=== PATIENT | male | born 1975 | race Hispanic/Latino ===

== ENCOUNTER 2017-11-29 08:30 | Emergency (ER) | payer SELFPAY ==
[2017-11-29] MEDS ORDERED: LIDOCAINE HCL 2% VISCOUS 15 ML UDCUP ONE (08:58)
[2017-11-29] MEDS ORDERED: DIATR MEGLU/DIATRIZOATE SODIUM 30 ML BOTTLE PO ONE (08:58)
[2017-11-29] MEDS ORDERED: ACETAMINOPHEN-CODEINE ELIXIR 5 ML UDCUP ONE (09:27)
== END 2017-11-29 14:18 | disposition home or self-care (01) ==
LOC: EDH 08:30
DX: R09.89 Other specified symptoms and signs involving the circulatory and respiratory systems (principal); R07.0 Pain in throat; Z72.0 Tobacco use; Z91.010 Allergy to peanuts
CPT/HCPCS: 70360; 70490; 99284; Q9963

== ENCOUNTER 2018-02-01 09:58 | Emergency (ER) | payer OTHER ==
[2018-02-01] MEDS ORDERED: HYDROXYZINE HCL 25 MG TABLET ONE (10:09)
== END 2018-02-01 11:20 | disposition home or self-care (01) ==
LOC: EDH 09:58
DX: F41.0 Panic disorder [episodic paroxysmal anxiety] (principal); K74.60 Unspecified cirrhosis of liver; Z91.010 Allergy to peanuts

== ENCOUNTER 2018-09-26 11:45 | Emergency (ER) | payer OTHER | END 2018-09-26 13:50 | disposition home or self-care (01) | LOC: EDH 11:45 | DX: M25.571 Pain in right ankle and joints of right foot (principal); Z91.010 Allergy to peanuts; Z72.0 Tobacco use | CPT/HCPCS: 99281 ==

== ENCOUNTER 2019-02-01 22:07 | Emergency (ER) | payer OTHER ==
[2019-02-02] MEDS ORDERED: LIDOCAINE HCL 1% 20 ML VIAL ONE (00:06)
[2019-02-02] MEDS ORDERED: TETANUS/DIPHTHERIA TOXOID [ADULT] 0.5 ML VIAL IM ONE (00:11)
== END 2019-02-02 00:35 | disposition home or self-care (01) ==
LOC: EDH 22:07
DX: S00.83XA Contusion of other part of head, initial encounter (principal); S13.8XXA Sprain of joints and ligaments of other parts of neck, initial encounter; X58.XXXA Exposure to other specified factors, initial encounter; Y93.39 Activity, other involving climbing, rappelling and jumping off; Y92.89 Other specified places as the place of occurrence of the external cause; Y99.8 Other external cause status
CPT/HCPCS: 70450; 71045; 72125; 90471; 90714

== ENCOUNTER 2021-02-01 14:22 | Emergency (ER) | payer SELFPAY ==
[2021-02-01] MEDS ORDERED: ONDANSETRON HCL 4 MG/2 ML VIAL ONE (14:57)
[2021-02-01] MEDS ORDERED: SODIUM CHLORIDE 0.9% 1000ML 1,000 ML IV ONE (14:58)
[2021-02-01 15:22] LABS: BASOPHILS % (AUTO) 0.2 % (0.0-5.0); HEMATOCRIT 48.9 % (42-54); LYMPHOCYTES % (AUTO) 36.2 % (21.0-51.0); MEAN CORPUSCULAR HEMOGLOBIN 32.6 pg (27.0-33.0); MEAN CORPUSCULAR HGB CONC 34.8 g/dL (32.0-36.0); MEAN CORPUSCULAR VOLUME 93.9 fL (79-99); NEUTROPHILS % (AUTO) 51.4 % (40.0-77.0); PLATELET COUNT (AUTO) 173 K/uL (130-400); RED BLOOD CELL COUNT(AUTO) 5.21 MIL/uL (4.50-6.20)
[2021-02-01 15:35] LABS: CREATININE 0.9 mg/dL (0.5-1.5); POTASSIUM 3.6 mmol/L (3.5-5.1)
[2021-02-01 15:40] LABS: ALBUMIN 3.5 g/dL (3.5-5.0); BILIRUBIN,TOTAL 0.5 mg/dL (0.2-1.0); TOTAL PROTEIN, SERUM 8.3 g/dL (6.0-8.3)
[2021-02-01] MEDS ORDERED: KETOROLAC TROMETHAMINE 15MG/ML ONE (17:03)
== END 2021-02-01 18:00 | disposition home or self-care (01) ==
LOC: EDH 14:22
DX: U07.1 COVID-19 (principal); F10.10 Alcohol abuse, uncomplicated; Z91.010 Allergy to peanuts
CPT/HCPCS: 36415; 80053; 84484; 85025; 87426; 87804 ×2; 93005; 96361; 96374; 96375; 99284; J1885; J2405; J7030

== ENCOUNTER 2021-02-04 15:28 | Inpatient (IN) | payer OTHER, SELFPAY ==
[~2021-02-04] VITALS: Ht 167.6 cm; Wt 91.7 kg
[2021-02-04 16:25] LABS: BASOPHILS % (AUTO) 0.2 % (0.0-5.0); HEMATOCRIT 46.2 % (42-54); LYMPHOCYTES % (AUTO) 25.6 % (21.0-51.0); MEAN CORPUSCULAR HGB CONC 34.4 g/dL (32.0-36.0); NEUTROPHILS % (AUTO) 59.6 % (40.0-77.0); PLATELET COUNT (AUTO) 154 K/uL (130-400); RED BLOOD CELL COUNT(AUTO) 4.97 MIL/uL (4.50-6.20); RED CELL DISTRIBUTION WIDTH 12.6 % (11.0-15.5); WHITE BLOOD COUNT (AUTO) 4.6 K/uL (4.8-10.8)
[2021-02-04 16:39] LABS: INR 0.96 (0.85-1.15); PROTHROMBIN TIME 10.5 SEC (9.6-11.6)
[2021-02-04 16:41] LABS: PARTIAL THROMBOPLASTIN TIME 26.2 SEC (26.3-35.5)
[2021-02-04] MEDS ORDERED: CEFTRIAXONE 1G VIAL ONE (16:44)
[2021-02-04] MEDS ORDERED: ALBUTEROL INHALER 90MCG/INH IH ONE (16:44)
[2021-02-04] MEDS ORDERED: AZITHROMYCIN 250 MG TABLET PO ONE (16:44)
[2021-02-04] MEDS ORDERED: ACETAMINOPHEN WITH CODEINE 1 TAB TAB ONE ×2 (16:45→23:41)
[2021-02-04 16:47] LABS: ABG BASE EXCESS 1.8 mmol/L (-2.0-3.0); ABG HCO3 24.4 mmol/L (21.0-28.0); ABG OXYGEN SATURATION 94.8 % (95.0-99.0); ABG PCO2 33 mmHg (35-48)
[2021-02-04 16:49] LABS: APPEARANCE,URINE Clear (CLEAR); BILIRUBIN,URINE Small (NEGATIVE); COLOR,URINE Dark Yellow (YELLOW); GLUCOSE, URINE (UA) Negative (NEGATIVE); KETONES,URINE 15 mg/dL (NEGATIVE); LEUKOCYTE ESTERASE ,URINE Trace (NEGATIVE); NITRATE,URINE Negative (NEGATIVE); OCCULT BLOOD,URINE Negative (NEGATIVE); PROTEIN,URINE POS 2+ mg/dL (NEGATIVE)
[2021-02-04 16:58] LABS: BACTERIA,URINE Few /HPF (None Seen); MUCUS,URINE Moderate LPF (None Seen); RBC,URINE 0-1 /HPF (0-1); SQUAMOUS EPITHELIAL CELL,UR Few /HPF (0-2)
[2021-02-04] MEDS ORDERED: MAG/ALUM/SIMETH 30 ML UDCUP PO PRN (18:00)
[2021-02-04] MEDS ORDERED: DIPHENHYDRAMINE HCL 25 MG CAPSULE PO PRN (18:00)
[2021-02-04] MEDS ORDERED: DOXYCYCLINE 100MG+NS 250ML IV SCH (18:00)
[2021-02-04] MEDS ORDERED: ONDANSETRON 4MG INJ IV PRN (18:00)
[2021-02-04] MEDS ORDERED: LACTULOSE 20 GM/30 ML UDCUP PO PRN (18:00)
[2021-02-04] MEDS ORDERED: ACETAMINOPHEN 325 MG TAB PO PRN (18:00)
[2021-02-04] MEDS: DEXAMETHASONE SOD PHOSPHATE 4 MG/ML 1ML VIAL IVP SCH (18:00)
[2021-02-04] MEDS ORDERED: ALBUTEROL 0.083% 2.5 MG/3 ML INH IH PRN (18:00)
[2021-02-04] MEDS ORDERED: ACETAMINOPHEN WITH CODEINE 1 TAB TAB PO PRN (18:00)
[2021-02-04] MEDS: DOXYCYCLINE 100MG+NS 250ML 250 ML IV SCH (20:00)
[2021-02-04 20:16] LABS: POTASSIUM 3.4 mmol/L (3.5-5.1)
[2021-02-04 20:25] LABS: ALBUMIN 2.9 g/dL (3.5-5.0); BILIRUBIN,TOTAL 0.4 mg/dL (0.2-1.0); CRP QUANTITATIVE 50.8 mg/L (0.00-9.0); TOTAL PROTEIN, SERUM 7.5 g/dL (6.0-8.3)
[2021-02-04] MEDS: FAMOTIDINE 20MG TAB PO SCH (21:00)
[2021-02-04] MEDS ORDERED: FAMOTIDINE 20MG TAB ONE (23:40)
[2021-02-04] MEDS ORDERED: ACETAMINOPHEN 325 MG TAB ONE (23:40)
[2021-02-05] VITALS (7 sets, daily range): BP systolic 121–138; BP diastolic 73–88
[2021-02-05 04:56] LABS: BASOPHILS % (AUTO) 0.4 % (0.0-5.0); EOSINOPHILS % (AUTO) 0.2 % (0.0-8.0); HEMATOCRIT 43.8 % (42-54); LYMPHOCYTES % (AUTO) 25.3 % (21.0-51.0); MEAN CORPUSCULAR HEMOGLOBIN 32.6 pg (27.0-33.0); MEAN CORPUSCULAR HGB CONC 34.9 g/dL (32.0-36.0); MEAN CORPUSCULAR VOLUME 93.4 fL (79-99); MONOCYTES % (AUTO) 15.8 % (3.0-13.0); NEUTROPHILS % (AUTO) 57.9 % (40.0-77.0); PLATELET COUNT (AUTO) 154 K/uL (130-400); RED BLOOD CELL COUNT(AUTO) 4.69 MIL/uL (4.50-6.20); RED CELL DISTRIBUTION WIDTH 12.6 % (11.0-15.5); WHITE BLOOD COUNT (AUTO) 5.1 K/uL (4.8-10.8)
[2021-02-05] MEDS ORDERED: PHARMACY COMMUNICATION**REMDESIVIR MISC SCH (05:15)
[2021-02-05 05:17] LABS: ALBUMIN 2.9 g/dL (3.5-5.0); BILIRUBIN,TOTAL 0.5 mg/dL (0.2-1.0); CREATININE 0.9 mg/dL (0.5-1.5); CRP QUANTITATIVE 58.9 mg/L (0.00-9.0); POTASSIUM 3.8 mmol/L (3.5-5.1); TOTAL PROTEIN, SERUM 6.6 g/dL (6.0-8.3)
[2021-02-05] MEDS ORDERED: CHLORDIAZEPOXIDE HCL 25 MG CAP PO PRN (08:15)
[2021-02-05] MEDS ORDERED: PHARMACY COMMUNICATION MISC PRN (08:15)
[2021-02-05] MEDS ORDERED: LORAZEPAM 2 MG/ML 1 ML VIAL IVP PRN (08:15)
[2021-02-05] MEDS: DOXYCYCLINE 100MG+NS 250ML 250 ML IV SCH ×2 (08:17→20:26)
[2021-02-05] MEDS: CEFTRIAXONE 1G VIAL IVP SCH ×2 (08:18→20:25)
[2021-02-05] MEDS: FAMOTIDINE 20MG TAB PO SCH ×2 (08:18→20:25)
[2021-02-05] MEDS: ENOXAPARIN SODIUM 40 MG/0.4 ML SYRINGE SQ SCH ×2 (08:19→20:25)
[2021-02-05] MEDS: FOLIC ACID 1 MG TABLET PO SCH (08:20)
[2021-02-05] MEDS ORDERED: ENOXAPARIN SODIUM 40 MG/0.4 ML SYRINGE SQ SCH (09:00)
[2021-02-05] MEDS ORDERED: PHARMACY COMMUNICATION MISC SCH (09:15)
[2021-02-05] MEDS ORDERED: REMDESIVIR (EUA) 520 200 MG in 0.9% NACL 250ML 250 ML IV SCH (10:45)
[2021-02-05] MEDS ORDERED: COMPOUND IV REFRIGERATED 1 EACH IVSOLN MISC PRN (10:45)
[2021-02-05 11:20] LABS: AMPHET/METH SCREEN,URINE NEGATIVE (NEGATIVE); BARBITURATE SCREEN, URINE NEGATIVE (NEGATIVE); BENZODIAZEPINES SCREEN,URINE NEGATIVE (NEGATIVE); CANNABINOID SCREEN,URINE POSITIVE (NEGATIVE); COCAINE SCREEN,URINE NEGATIVE (NEGATIVE); OPIATE SCREEN,URINE POSITIVE (NEGATIVE); PHENCYCLIDINE SCREEN,URINE NEGATIVE (NEGATIVE)
[2021-02-05] MEDS: GUAIFENESIN-DM 200/20 MG 10 ML PO PRN ×3 (11:44→20:43)
[2021-02-05] MEDS: DEXAMETHASONE SOD PHOSPHATE 4 MG/ML 1ML VIAL IVP SCH (17:16)
[2021-02-05] MEDS: THIAMINE HCL 100 MG TABLET PO SCH (17:34)
[2021-02-05] MEDS: CHLORDIAZEPOXIDE HCL 25 MG CAP PO SCH (20:25)
[2021-02-06 03:13] VITALS: BP 123/89
[2021-02-06] MEDS: GUAIFENESIN-DM 200/20 MG 10 ML PO PRN ×3 (03:37→20:00)
[2021-02-06 04:47] LABS: HEMATOCRIT 46.4 % (42-54); LYMPHOCYTES % (AUTO) 22.9 % (21.0-51.0); MEAN CORPUSCULAR HEMOGLOBIN 32.6 pg (27.0-33.0); MEAN CORPUSCULAR HGB CONC 35.6 g/dL (32.0-36.0); MEAN CORPUSCULAR VOLUME 91.7 fL (79-99); MONOCYTES % (AUTO) 11.6 % (3.0-13.0); NEUTROPHILS % (AUTO) 65.2 % (40.0-77.0); PLATELET COUNT (AUTO) 222 K/uL (130-400); RED BLOOD CELL COUNT(AUTO) 5.06 MIL/uL (4.50-6.20); RED CELL DISTRIBUTION WIDTH 12.5 % (11.0-15.5); WHITE BLOOD COUNT (AUTO) 3.3 K/uL (4.8-10.8)
[2021-02-06 05:12] LABS: ALBUMIN 2.8 g/dL (3.5-5.0); BILIRUBIN,TOTAL 0.4 mg/dL (0.2-1.0); CREATININE 0.8 mg/dL (0.5-1.5); CRP QUANTITATIVE 90.7 mg/L (0.00-9.0); MAGNESIUM 2.4 mg/dL (1.80-2.40); POTASSIUM 4.1 mmol/L (3.5-5.1); TOTAL PROTEIN, SERUM 7.9 g/dL (6.0-8.3)
[2021-02-06] MEDS: REMDESIVIR LABS MISC SCH (06:00)
[2021-02-06 07:00] VITALS: BP 142/80
[2021-02-06] MEDS: FOLIC ACID 1 MG TABLET PO SCH (08:29)
[2021-02-06] MEDS: DOXYCYCLINE 100MG+NS 250ML 250 ML IV SCH (08:29)
[2021-02-06] MEDS: ENOXAPARIN SODIUM 40 MG/0.4 ML SYRINGE SQ SCH ×2 (08:29→20:00)
[2021-02-06] MEDS: CHLORDIAZEPOXIDE HCL 25 MG CAP PO SCH ×2 (08:30→20:00)
[2021-02-06] MEDS: CEFTRIAXONE 1G VIAL IVP SCH (08:30)
[2021-02-06] MEDS: FAMOTIDINE 20MG TAB PO SCH ×2 (08:30→20:00)
[2021-02-06] MEDS: THIAMINE HCL 100 MG TABLET PO SCH (08:48)
[2021-02-06 11:00] VITALS: BP 126/50
[2021-02-06] MEDS: REMDESIVIR (EUA) 520 100 MG in 0.9% NACL 250ML 250 ML IV SCH (12:24)
[2021-02-06 16:00] VITALS: BP 120/87
[2021-02-06] MEDS: DEXAMETHASONE SOD PHOSPHATE 4 MG/ML 1ML VIAL IVP SCH (17:38)
[2021-02-06 19:21] VITALS: BP 132/73
[2021-02-06 23:23] VITALS: BP 107/59
[2021-02-07 03:55] VITALS: BP 133/56
[2021-02-07 04:53] LABS: HEMATOCRIT 44.7 % (42-54); LYMPHOCYTES % (AUTO) 19.8 % (21.0-51.0); MEAN CORPUSCULAR HEMOGLOBIN 32.2 pg (27.0-33.0); MEAN CORPUSCULAR HGB CONC 35.3 g/dL (32.0-36.0); MEAN CORPUSCULAR VOLUME 91.2 fL (79-99); MONOCYTES % (AUTO) 18.1 % (3.0-13.0); NEUTROPHILS % (AUTO) 61.4 % (40.0-77.0); PLATELET COUNT (AUTO) 290 K/uL (130-400); RED CELL DISTRIBUTION WIDTH 12.4 % (11.0-15.5)
[2021-02-07] MEDS: DEXAMETHASONE SOD PHOSPHATE 4 MG/ML 1ML VIAL IVP SCH (05:40)
[2021-02-07] MEDS: REMDESIVIR LABS MISC SCH (06:00)
[2021-02-07 06:11] LABS: ALBUMIN 2.6 g/dL (3.5-5.0); BILIRUBIN,TOTAL 0.3 mg/dL (0.2-1.0); CREATININE 0.8 mg/dL (0.5-1.5); CRP QUANTITATIVE 35.4 mg/L (0.00-9.0); POTASSIUM 4.2 mmol/L (3.5-5.1); TOTAL PROTEIN, SERUM 7.3 g/dL (6.0-8.3)
[2021-02-07 08:00] VITALS: BP 124/77
[2021-02-07] MEDS: FOLIC ACID 1 MG TABLET PO SCH (09:47)
[2021-02-07] MEDS: ENOXAPARIN SODIUM 40 MG/0.4 ML SYRINGE SQ SCH ×2 (09:47→20:28)
[2021-02-07] MEDS: CHLORDIAZEPOXIDE HCL 25 MG CAP PO SCH ×2 (09:47→20:27)
[2021-02-07] MEDS: THIAMINE HCL 100 MG TABLET PO SCH ×2 (09:47→20:26)
[2021-02-07] MEDS: FAMOTIDINE 20MG TAB PO SCH (09:47)
[2021-02-07] MEDS: DOCUSATE SODIUM 100 MG CAP PO SCH ×2 (11:00→20:26)
[2021-02-07 12:00] VITALS: BP 126/70
[2021-02-07] MEDS: REMDESIVIR (EUA) 520 100 MG in 0.9% NACL 250ML 250 ML IV SCH (14:09)
[2021-02-07 16:00] VITALS: BP 129/82
[2021-02-07 20:00] VITALS: BP 126/86
[2021-02-07] MEDS ORDERED: DOCUSATE SODIUM 100 MG CAP PO SCH (21:00)
[2021-02-07 23:32] VITALS: BP 128/79
[2021-02-08] MEDS: GUAIFENESIN-DM 200/20 MG 10 ML PO PRN ×3 (02:51→20:43)
[2021-02-08 03:13] VITALS: BP 127/85
[2021-02-08] MEDS: REMDESIVIR LABS MISC SCH (06:00)
[2021-02-08] MEDS ORDERED: ONDA-104 PO (07:22)
[2021-02-08] MEDS: CHLORDIAZEPOXIDE HCL 25 MG CAP PO SCH (08:26)
[2021-02-08] MEDS: FOLIC ACID 1 MG TABLET PO SCH (08:26)
[2021-02-08] MEDS: THIAMINE HCL 100 MG TABLET PO SCH ×2 (08:26→20:43)
[2021-02-08] MEDS: DOCUSATE SODIUM 100 MG CAP PO SCH ×3 (08:26→20:43)
[2021-02-08] MEDS: ENOXAPARIN SODIUM 40 MG/0.4 ML SYRINGE SQ SCH ×2 (08:26→20:45)
[2021-02-08 08:30] VITALS: BP 127/58
[2021-02-08] MEDS ORDERED: DEXAMETHASONE SOD PHOSPHATE 4 MG/ML 1ML VIAL IVP SCH (09:00)
[2021-02-08] MEDS: DEXAMETHASONE 4 MG TAB PO SCH (09:36)
[2021-02-08 10:48] LABS: ALBUMIN 2.8 g/dL (3.5-5.0); BILIRUBIN,DIRECT 0.1 mg/dL (0.0-0.3); BILIRUBIN,TOTAL 0.4 mg/dL (0.2-1.0); TOTAL PROTEIN, SERUM 6.5 g/dL (6.0-8.3)
[2021-02-08 11:44] VITALS: BP 113/67
[2021-02-08] MEDS: REMDESIVIR (EUA) 520 100 MG in 0.9% NACL 250ML 250 ML IV SCH (14:20)
[2021-02-08] MEDS ORDERED: CHLORDIAZEPOXIDE HCL 25 MG CAP PO PRN (15:15)
[2021-02-08 16:00] VITALS: BP 133/63
[2021-02-08 20:01] VITALS: BP 118/84
[2021-02-09] VITALS: BP 120/81
[2021-02-09] MEDS: GUAIFENESIN-DM 200/20 MG 10 ML PO PRN (04:03)
[2021-02-09 04:06] VITALS: BP 117/62
[2021-02-09 04:19] LABS: BASOPHILS % (AUTO) 0.2 % (0.0-5.0); EOSINOPHILS % (AUTO) 0.3 % (0.0-8.0); HEMATOCRIT 46.1 % (42-54); MEAN CORPUSCULAR HEMOGLOBIN 31.7 pg (27.0-33.0); MEAN CORPUSCULAR HGB CONC 34.3 g/dL (32.0-36.0); MEAN CORPUSCULAR VOLUME 92.4 fL (79-99); NEUTROPHILS % (AUTO) 71.1 % (40.0-77.0); PLATELET COUNT (AUTO) 397 K/uL (130-400); RED BLOOD CELL COUNT(AUTO) 4.99 MIL/uL (4.50-6.20); RED CELL DISTRIBUTION WIDTH 12.3 % (11.0-15.5); WHITE BLOOD COUNT (AUTO) 9.2 K/uL (4.8-10.8)
[2021-02-09 04:35] LABS: ALBUMIN 2.8 g/dL (3.5-5.0); CREATININE 0.8 mg/dL (0.5-1.5); POTASSIUM 3.6 mmol/L (3.5-5.1)
[2021-02-09 05:08] LABS: BILIRUBIN,TOTAL 0.4 mg/dL (0.2-1.0); CRP QUANTITATIVE 15.7 mg/L (0.00-9.0); TOTAL PROTEIN, SERUM 7.2 g/dL (6.0-8.3)
[2021-02-09] MEDS: REMDESIVIR LABS MISC SCH (05:57)
[2021-02-09] MEDS: DOCUSATE SODIUM 100 MG CAP PO SCH ×2 (05:59→14:55)
[2021-02-09 07:42] VITALS: BP 128/81
[2021-02-09] MEDS: THIAMINE HCL 100 MG TABLET PO SCH (08:29)
[2021-02-09] MEDS: FOLIC ACID 1 MG TABLET PO SCH (08:29)
[2021-02-09] MEDS: DEXAMETHASONE 4 MG TAB PO SCH (08:32)
[2021-02-09] MEDS ORDERED: POLYETHYLENE GLYCOL 3350 17 GM POWD.PACK PO SCH (08:45)
[2021-02-09] MEDS ORDERED: ENOXAPARIN SODIUM 40 MG/0.4 ML SYRINGE SQ SCH (09:00)
[2021-02-09 12:00] VITALS: BP 110/72
[2021-02-09] MEDS ORDERED: DEXA6TAB PO (14:24)
[2021-02-09] MEDS: REMDESIVIR (EUA) 520 100 MG in 0.9% NACL 250ML 250 ML IV SCH (14:34)
== END 2021-02-09 17:31 | disposition home or self-care (01) | DRG 177 ==
LOC: EDH 15:28 → OBSVTOIN 15:29 → EDHIP 15:29 → 2AH 02-05 00:24
PROVIDERS: ADMIT Internal Medicine; ATTEND Internal Medicine
PROC: XW033E5 Introduction of Remdesivir Anti-infective into Peripheral Vein, Percutaneous Approach, New Technology Group 5 (ICD-10-PCS; principal; 2021-02-05)
DX: U07.1 COVID-19 (principal); J96.01 Acute respiratory failure with hypoxia; J12.82 Pneumonia due to coronavirus disease 2019; E87.1 Hypo-osmolality and hyponatremia; D68.59 Other primary thrombophilia; K59.04 Chronic idiopathic constipation; E87.6 Hypokalemia; E66.9 Obesity, unspecified; E86.1 Hypovolemia; F12.10 Cannabis abuse, uncomplicated; F10.10 Alcohol abuse, uncomplicated; Z68.34 Body mass index [BMI] 34.0-34.9, adult
CPT/HCPCS: 36415; 36600; 71045; 71250; 80053; 80076; 80305; 81001; 82550; 82728; 82803; 83605; 83615; 83735; 84145; 84484; 85025; 85378; 85610; 85730; 86140; 86850; 86900; 86901; 87040; 87426; 87804; 87880; 93005; 93970; 94664; G0378; J0696; J1100; J1650; J2405; J3490; J7050; J8540

== ENCOUNTER 2021-02-14 04:44 | Emergency (ER) | payer OTHER, SELFPAY ==
[~2021-02-14 04:44] MED LIST: DEXA6TAB PO; ONDA-104 PO
[2021-02-14] MEDS ORDERED: ORPHENADRINE CITRATE 30 MG/ML ML ONE (05:06)
[2021-02-14] MEDS ORDERED: KETOROLAC TROMETHAMINE 30MG/ML ONE (05:06)
[2021-02-14] MEDS ORDERED: HYDROCODONE/ACETAMINOPHEN 5/325 MG TAB ONE (05:06)
[2021-02-14] MEDS ORDERED: LIDOCAINE 5% TOPICAL PATCH TP ONE (09:40)
== END 2021-02-14 10:01 | disposition home or self-care (01) ==
LOC: EDH 04:44
DX: S22.32XA Fracture of one rib, left side, initial encounter for closed fracture (principal); Z86.16 Personal history of COVID-19; Z72.0 Tobacco use; F10.10 Alcohol abuse, uncomplicated; Z91.010 Allergy to peanuts; W10.9XXA Fall (on) (from) unspecified stairs and steps, initial encounter; Y93.89 Activity, other specified; Y92.89 Other specified places as the place of occurrence of the external cause; Y99.8 Other external cause status
CPT/HCPCS: 71250; 96374; 96375; 99284; J1885; J2360

== ENCOUNTER 2021-06-17 09:15 | Emergency (ER) | payer OTHER, SELFPAY ==
[~2021-06-17] VITALS: Ht 167.6 cm; Wt 95.3 kg
[2021-06-17] MEDS ORDERED: AZIT500T PO (10:31)
[2021-06-17] MEDS ORDERED: METH4TAB3 PO (10:31)
[2021-06-17 10:46] VITALS: BP 137/82
== END 2021-06-17 10:59 | disposition home or self-care (01) ==
LOC: EDH 09:15
DX: J18.9 Pneumonia, unspecified organism (principal); J40 Bronchitis, not specified as acute or chronic; Z20.822 Contact with and (suspected) exposure to COVID-19; Z79.52 Long term (current) use of systemic steroids; Z79.899 Other long term (current) drug therapy
CPT/HCPCS: 71045; 87635; 87804 ×2; 93005; 99285; C9803

== ENCOUNTER 2021-08-17 07:01 | Emergency (ER) | payer OTHER, SELFPAY ==
[~2021-08-17] VITALS: Ht 167.6 cm; Wt 97.5 kg
[~2021-08-17 07:01] MED LIST changes: +AZIT500T PO; +METH4TAB3 PO
[2021-08-17] MEDS ORDERED: IPRATROPIUM/ALBUTEROL SULFATE 3 ML SOLUTION IH ONE (07:30)
[2021-08-17] MEDS ORDERED: SOLU-MEDROL 125MG VIAL IVP ONE (07:30)
[2021-08-17 07:39] LABS: BASOPHILS % (AUTO) 0.8 % (0.0-5.0); EOSINOPHILS % (AUTO) 1.3 % (0.0-8.0); HEMATOCRIT 43.3 % (42-54); LYMPHOCYTES % (AUTO) 27.5 % (21.0-51.0); MEAN CORPUSCULAR HEMOGLOBIN 32.2 pg (27.0-33.0); MEAN CORPUSCULAR HGB CONC 34.2 g/dL (32.0-36.0); MEAN CORPUSCULAR VOLUME 94.3 fL (79-99); MONOCYTES % (AUTO) 11.1 % (3.0-13.0); PLATELET COUNT (AUTO) 224 K/uL (130-400); RED BLOOD CELL COUNT(AUTO) 4.59 MIL/uL (4.50-6.20)
[2021-08-17 07:48] LABS: CREATININE 0.6 mg/dL (0.5-1.5); POTASSIUM 5.1 mmol/L (3.5-5.1)
[2021-08-17 08:10] LABS: ALBUMIN 3.7 g/dL (3.5-5.0); BILIRUBIN,TOTAL 0.8 mg/dL (0.2-1.0); TOTAL PROTEIN, SERUM 8.1 g/dL (6.0-8.3)
[2021-08-17] MEDS ORDERED: 0.9%NACL 1000ML 1,000 ML IV ONE ×2 (08:19→08:30)
[2021-08-17] MEDS ORDERED: METH4TAB3 PO (08:52)
[2021-08-17] MEDS ORDERED: AZIT250T PO (08:52)
[2021-08-17 09:05] VITALS: BP 151/99
== END 2021-08-17 09:16 | disposition home or self-care (01) ==
LOC: EDH 07:01
DX: J40 Bronchitis, not specified as acute or chronic (principal); Z20.822 Contact with and (suspected) exposure to COVID-19; Z79.52 Long term (current) use of systemic steroids; Z79.899 Other long term (current) drug therapy; Z86.16 Personal history of COVID-19
CPT/HCPCS: 36415; 71045; 80053; 82550; 83874; 83880; 84484; 85025; 85378; 87635; 93005; 94640; 96361; 96374; C9803; J2930; J7030

== ENCOUNTER 2022-07-20 05:28 | Emergency (ER) | payer OTHER ==
[~2022-07-20] VITALS: Ht 167.6 cm; Wt 94.8 kg
[~2022-07-20 05:28] MED LIST changes: +AZIT250T PO
[2022-07-20] MEDS ORDERED: ACETAMINOPHEN 500 MG TABLET ONE (05:49)
[2022-07-20] MEDS ORDERED: IPRATROPIUM/ALBUTEROL SULFATE 3 ML SOLUTION IH ONE (06:00)
[2022-07-20] MEDS ORDERED: IBUPROFEN 800 MG TAB PO ONE (06:00)
[2022-07-20] MEDS ORDERED: ACETAMINOPHEN 500 MG TABLET PO ONE (06:00)
[2022-07-20] MEDS ORDERED: SOLU-MEDROL 125MG VIAL IVP ONE (06:30)
[2022-07-20 07:39] LABS: BASOPHILS % (AUTO) 0.2 % (0.0-5.0); EOSINOPHILS % (AUTO) 1.2 % (0.0-8.0); HEMATOCRIT 45.2 % (42-54); LYMPHOCYTES % (AUTO) 24.9 % (21.0-51.0); MEAN CORPUSCULAR HEMOGLOBIN 32.6 pg (27.0-33.0); MEAN CORPUSCULAR HGB CONC 34.7 g/dL (32.0-36.0); MEAN CORPUSCULAR VOLUME 93.8 fL (79-99); MONOCYTES % (AUTO) 11.9 % (3.0-13.0); NEUTROPHILS % (AUTO) 61.6 % (40.0-77.0); PLATELET COUNT (AUTO) 317 K/uL (130-400); RED BLOOD CELL COUNT(AUTO) 4.82 MIL/uL (4.50-6.20); RED CELL DISTRIBUTION WIDTH 12.7 % (11.0-15.5)
[2022-07-20 07:49] LABS: CREATININE 0.8 mg/dL (0.5-1.5); POTASSIUM 3.2 mmol/L (3.5-5.1)
[2022-07-20 07:51] LABS: ALBUMIN 3.6 g/dL (3.5-5.0); TOTAL PROTEIN, SERUM 7.7 g/dL (6.0-8.3)
[2022-07-20] MEDS ORDERED: BENZONATATE 100 MG CAPSULE PO SCH (08:00)
[2022-07-20 08:24] LABS: CRP QUANTITATIVE 20.2 mg/L (0.00-9.0); MAGNESIUM 1.8 mg/dL (1.80-2.40)
[2022-07-20] MEDS ORDERED: KCL 20 MEQ ERTAB PO ONE (08:30)
[2022-07-20] MEDS ORDERED: BENZ-39 PO (12:06)
[2022-07-20] MEDS ORDERED: ALBU8.5H8 IH (12:06)
[2022-07-20] MEDS ORDERED: PRED20TA3 PO (12:06)
[2022-07-20 12:21] VITALS: BP 124/76
== END 2022-07-20 12:22 | disposition home or self-care (01) ==
LOC: EDH 05:28
DX: J20.9 Acute bronchitis, unspecified (principal); Z20.822 Contact with and (suspected) exposure to COVID-19; Z79.1 Long term (current) use of non-steroidal anti-inflammatories (NSAID); Z79.52 Long term (current) use of systemic steroids; Z79.899 Other long term (current) drug therapy
CPT/HCPCS: 99285; 96374; 71045; 87635; 83735; 84484; 80053; 83880; 85025; 87804 ×2; 86140; 36415; 93005; 94640; C9803; J2930